=== PATIENT | female | born 1965 | race American Indian/Alaskan Native ===

== ENCOUNTER 2017-10-08 10:07 | Emergency (ER) | payer SELFPAY ==
[2017-10-08 14:31] VITALS: BP 174/87
--- NOTE | 2017-10-08 14:34 | Emergency Department Report ---
ED General Adult HPI - General Chief complaint: Pain General Stated complaint: MUSCLE SPASM Time Seen by Provider: 10/08/17 14:31 Source: patient, family Mode of arrival: Ambulatory Limitations: No Limitations - History of Present Illness Initial comments: This is a 51-year-old patient reports that she is having neuropathic pain everywhere for few weeks. She said it certainly diabetic nerve pain and she doesn't have a primary care doctor. She is currently on medication for diabetes and high blood pressure but says that she does have anything for her neuropathy. Denies any chest pain or shortness of breath. Denies any nausea or vomiting. She is reporting pain to her lower extremity at 8 out of 10 tingling and aching. This is something chronic for her but she says she needs something for pain. Denies any fever or chills. Denies any trauma. No over- the-counter medication taken MD Complaint: generalized pain Onset/Timin -: Gradual, week(s) Location: lower extremity Severity scale (0 -10): 8 Quality: aching, constant, other (tingly) Consistency: constant Improves with: none Worsens with: movement Associated Symptoms: denies: confusion, chest pain, cough, diaphoresis, fever/ chills, headaches, loss of appetite, malaise, nausea/vomiting, rash, seizure, shortness of breath, syncope, weakness Treatments Prior to Arrival: none - Related Data Previous Rx's Medication Instructions Recorded Last Taken Type Cyclobenzaprine [Flexeril] 10 mg PO TID PRN #15 tablet 10/08/17 Unknown Rx Sulfamethoxazole/Trimethoprim 1 each PO BID 7 Days #14 tablet 10/08/17 Unknown Rx [Bactrim DS TAB] traMADol [Ultram 50 MG tab] 50 mg PO Q6HR PRN #15 tablet 10/08/17 Unknown Rx Allergies Allergy/AdvReac Type Severity Reaction Status Date / Time No Known Allergies Allergy Unverified 10/08/17 10:33 ED Review of Systems ROS: Stated complaint: MUSCLE SPASM Other details as noted in HPI Constitutional: denies: chills, fever Eyes: denies: eye pain, eye discharge, vision change Respiratory: denies: cough, shortness of breath, SOB with exertion, SOB at rest , stridor, wheezing Cardiovascular: denies: chest pain, palpitations, edema, syncope Gastrointestinal: denies: abdominal pain, nausea, vomiting, diarrhea Genitourinary: denies: urgency, dysuria, hematuria, discharge Musculoskeletal: arthralgia. denies: back pain, joint swelling, myalgia Skin: denies: rash, lesions Neurological: denies: headache, weakness, numbness, paresthesias, abnormal gait , vertigo ED Past Medical Hx - Past Medical History Previous Medical History?: Yes Hx Hypertension: Yes Hx Diabetes: Yes Additional medical history: Diabetic neuropathy - Surgical History Past Surgical History?: No Hx Coronary Stent: No Hx Open Heart Surgery: No Hx Pacemaker: No Hx Internal Defibrillator: No Hx Cholecystectomy: No Hx Appendectomy: No Hx Breast Surgery: No - Family History Family history: no significant - Social History Smoking Status: Never Smoker Substance Use Type: None - Medications Home Medications: Home Medications Medication Instructions Recorded Confirmed Last Taken Type Cyclobenzaprine [Flexeril] 10 mg PO TID PRN #15 tablet 10/08/17 Unknown Rx Sulfamethoxazole/Trimethoprim 1 each PO BID 7 Days #14 tablet 10/08/17 Unknown Rx [Bactrim DS TAB] traMADol [Ultram 50 MG tab] 50 mg PO Q6HR PRN #15 tablet 10/08/17 Unknown Rx ED Physical Exam - General Limitations: No Limitations General appearance: alert, in no apparent distress - Head Head exam: Present: atraumatic, normocephalic, normal inspection - Eye Eye exam: Present: normal appearance, PERRL, EOMI Pupils: Present: normal accommodation - ENT ENT exam: Present: normal exam, normal orophraynx, mucous membranes moist, TM's normal bilaterally, normal external ear exam - Neck Neck exam: Present: normal inspection, full ROM. Absent: tenderness, lymphadenopathy - Respiratory Respiratory exam: Present: normal lung sounds bilaterally. Absent: respiratory distress, chest wall tenderness - Cardiovascular Cardiovascular Exam: Present: regular rate, normal rhythm, normal heart sounds. Absent: systolic murmur, diastolic murmur - GI/Abdominal GI/Abdominal exam: Present: soft, normal bowel sounds. Absent: distended, tenderness, guarding, rebound, rigid, organomegaly, mass, bruit - Extremities Exam Extremities exam: Present: normal inspection, full ROM, normal capillary refill , other (no clubbing, cyanosis or edema. Positive holosystolic extremities and no neurovascular compromise. Patient with +5/5 strength in all extremities. She has full range of motion to all extremities without any joint crepitus, effusion or deformity.). Absent: tenderness, pedal edema, joint swelling, calf tenderness - Back Exam Back exam: Present: normal inspection, full ROM, other (ambulates without any difficulties). Absent: tenderness, CVA tenderness (R), CVA tenderness (L), muscle spasm, paraspinal tenderness, vertebral tenderness, rash noted - Neurological Exam Neurological exam: Present: alert, oriented X3, normal gait, reflexes normal. Absent: motor sensory deficit - Psychiatric Psychiatric exam: Present: normal affect, normal mood - Skin Skin exam: Present: warm, dry, intact, normal color. Absent: rash ED Course Vital Signs 10/08/17 10/08/17 10:33 14:31 Temperature 98.3 F 97.5 F L Pulse Rate 105 H 80 Respiratory 18 18 Rate Blood Pressure 172/86 Blood Pressure 174/87 [Left] O2 Sat by Pulse 99 97 Oximetry - Reevaluation(s) Reevaluation #1: 10/08/17 16:38 patient given Ultram 50 mg when necessary emergency room for pain to bilateral lower extremity. ED Medical Decision Making - Medical Decision Making This is a 51-year-old female here reports that she does have a primary care physician and she has diabetes which is controlled she says she has a history of neuropathy and she is having her pathic pain in her legs along with spasms which is not new for her. Patient's requesting some medication to help with this. She says she went to [facility] but they did not have any appointment so she came to the emergency room. She is also reporting some pustules to her chest wall area which she says she's had in the past and it usually goes away with antibiotic. She was seen and examined by myself. She was found to have minimal pustular area to anterior chest wall, mild erythema, tender to palpate, neurological, neurovascular and extremity exam normal. +2 pulses to all extremity, 5/5 strength in all extremities. No motor or sensory deficit noted. Patient able to ambulate without any difficulties. I discussed diagnosis and treatment plan with patient and she voiced understanding. She with musculoskeletal pain with paresthesia to bilateral lower extremity suspect from chronic neuropathy .she mild pustular area to anterior chest wall which is stable. Patient given Ultram 50 mg when necessary emergency room for pain which she voiced relief. Patient discharged home in stable condition with prescription for Ultram, Flexeril and Bactrim and I discussed with her that she needs to follow-up with [facility] as she does not have a primary care physician in 2-3 days. I discussed with her to return to the emergency room if her condition worsens otherwise follow up with primary care and she voiced understanding. Critical care attestation.: If time is entered above; I have spent that time in minutes in the direct care of this critically ill patient, excluding procedure time. ED Disposition Clinical Impression: Pain in both lower extremities, Skin pustule, Muscle spasm Disposition: - TO HOME OR SELFCARE Is pt being admited?: No Does the pt Need Aspirin: No Condition: Stable Instructions: Paresthesia (ED), Arthralgia (ED) Additional Instructions: Please follow up with [facility]. Call to schedule an appointment for management of chronic medical problems Take Ultram as prescribed for pain but please do not drive or operate heavy machinery as this medication causes drowsiness. He can have [facility] refer you to have nerve testing done. Prescriptions: Cyclobenzaprine [Flexeril] 10 mg PO TID PRN #15 tablet PRN Reason: Muscle Spasm Sulfamethoxazole/Trimethoprim [Bactrim DS TAB] 1 each PO BID 7 Days #14 tablet traMADol [Ultram 50 MG tab] 50 mg PO Q6HR PRN #15 tablet PRN Reason: Pain Referrals: [facility] [Outside] - 2-3 Days Forms: Work/School Release Form(ED)
[2017-10-08] MEDS ORDERED: ULTRAM PO ONE (16:38)
== END 2017-10-08 16:56 | disposition home or self-care (01) ==
LOC: ED 10:07
DX: M79.662 Pain in left lower leg (principal); M79.661 Pain in right lower leg; M62.838 Other muscle spasm; L08.9 Local infection of the skin and subcutaneous tissue, unspecified; I10 Essential (primary) hypertension; E11.40 Type 2 diabetes mellitus with diabetic neuropathy, unspecified
CPT/HCPCS: 99282

== ENCOUNTER 2017-12-19 09:10 | Emergency (ER) | payer SELFPAY ==
[2017-12-19] MEDS ORDERED: MOTRIN PO ONE (10:04)
--- NOTE | 2017-12-19 10:05 | Emergency Department Report ---
Blank Doc - Documentation Documentation: Patient is a 52-year-old black female who states last night she was in a movie theater and when she got up to use the restroom and return to us E she fell while trying to get down the aisle. Patient states that she fell directly onto the left knee but then also may have hit her right shoulder and ribs. Patient complaining of lower C-spine, right ribs, right shoulder, left hip, and left knee pain. Patient will have x-rays done of those body parts. Patient given 800 mg Motrin for pain relief. The patient will be reassessed.
[2017-12-19] MEDS ORDERED: MOTRIN ONE (10:09)
--- NOTE | 2017-12-19 11:45 | XRay Report ---
LEFT KNEE, 3 views: History: Fall, injury. Bone mineralization is normal. Mild osteoarthritic changes are identified throughout the left knee. No evidence for fracture, bone lesion or joint effusion. IMPRESSION: Mild osteoarthritis. No acute process identified.
--- NOTE | 2017-12-19 11:47 | XRay Report ---
RIGHT RIBS, 3 VIEWS: History: Fall, injury. Routine views of the rib cage demonstrate normal mineralization with no significant contour abnormalities, fractures or destructive lesions. PA view of the chest demonstrates no underlying cardiopulmonary abnormalities, fluid or pneumothorax. IMPRESSION: Unremarkable right rib series.
--- NOTE | 2017-12-19 11:47 | XRay Report ---
RIGHT SHOULDER, 3 VIEWS: HISTORY: Fall, injury. Normal bone mineralization. The a.c. joint is widened up to 1.8 cm. This could be secondary to ligamentous injury or previous trauma. There are moderate osteoarthritic changes of the glenohumeral joint. The soft tissues are unremarkable. IMPRESSION: Osteoarthritis. Widened a.c. joint as described. Ligamentous injury versus chronic injury. Please correlate with the patient.
--- NOTE | 2017-12-19 11:48 | XRay Report ---
LEFT HIP, 2 views: History: Fall, injury. The bony architecture is intact without evidence of fracture or dislocation. No significant soft tissue abnormality is seen. IMPRESSION: Normal left hip.
--- NOTE | 2017-12-19 11:49 | XRay Report ---
CERVICAL SPINE, 3 views: History: Fall, injury. Findings: The vertebral bodies, disk spaces, posterior elements and prevertebral soft tissues are intact. The dens is intact. No acute fracture or malalignment is identified. Moderate degenerative disc disease is identified throughout the cervical spine. The facet joints are unremarkable. Small small right cervical rib at C7 is noted. Impression: Cervical spondylosis. No evidence for acute injury to the cervical spine.
--- NOTE | 2017-12-19 12:32 | Emergency Department Report ---
ED Fall HPI - General Chief Complaint: Fall Stated Complaint: BODY PAIN Time Seen by Provider: 12/19/17 09:58 Source: patient Mode of arrival: Ambulatory - History of Present Illness Initial Comments: This is a 52-year-old female nontoxic, well nourished in appearance, no acute signs of distress presents to the ED with c/o of right shoulder pain, right rib pain, left knee pain, left hip pain and neck pain status post fall that occurred yesterday. Patient stated that she had a ground-level fall at a movie theater. Patient denies any head trauma. Patient denies any loss of consciousness. Patient denies any chest pain, shortness of breath, fever, chills, nausea, vomiting, chest pain, short of breath, headache or stiff neck. Patient denies any drug allergies with past medical history of diabetes, hypertension. MD Complaint: fall -: Last night Fall From: standing Place Fall Occurred: other Loss of Consciousness: none Prolonged Down Time?: no Symptoms Prior to Fall: none Severity: mild Severity scale (0 -10): 8 Quality: aching Context: tripped/slipped Associated Symptoms: neck pain. denies: headache, numbness, weakness, chest paint, shortness of breath, abdominal pain, hematuria, unable to walk, lightheaded, vertigo, confusion - Related Data Previous Rx's Medication Instructions Recorded Last Taken Type Cyclobenzaprine [Flexeril] 10 mg PO TID PRN #15 tablet 10/08/17 Unknown Rx Sulfamethoxazole/Trimethoprim 1 each PO BID 7 Days #14 tablet 10/08/17 Unknown Rx [Bactrim DS TAB] traMADol [Ultram 50 MG tab] 50 mg PO Q6HR PRN #15 tablet 10/08/17 Unknown Rx Cyclobenzaprine HCl [Flexeril 5 MG 5 mg PO QHS PRN #10 tab 12/19/17 Unknown Rx TAB] Gabapentin [Neurontin] 100 mg PO Q12H #12 capsule 12/19/17 Unknown Rx Ibuprofen [Motrin] 600 mg PO Q8H PRN #30 tablet 12/19/17 Unknown Rx metFORMIN [Glucophage] 500 mg PO BID #60 tablet 12/19/17 Unknown Rx Allergies Allergy/AdvReac Type Severity Reaction Status Date / Time No Known Allergies Allergy Unverified 10/08/17 10:33 ED Review of Systems ROS: Stated complaint: BODY PAIN Other details as noted in HPI Constitutional: denies: chills, fever Eyes: denies: eye pain, eye discharge, vision change ENT: denies: ear pain, throat pain Respiratory: denies: cough, shortness of breath, wheezing Cardiovascular: denies: chest pain, palpitations Endocrine: no symptoms reported Gastrointestinal: denies: abdominal pain, nausea, diarrhea Genitourinary: denies: urgency, dysuria, discharge Musculoskeletal: back pain, arthralgia. denies: joint swelling Skin: denies: rash, lesions Neurological: denies: headache, weakness, paresthesias Psychiatric: denies: anxiety, depression Hematological/Lymphatic: denies: easy bleeding, easy bruising ED Past Medical Hx - Past Medical History Previous Medical History?: Yes Hx Hypertension: Yes Hx Diabetes: Yes Additional medical history: Diabetic neuropathy. cardiomyopathy - Surgical History Past Surgical History?: Yes Hx Coronary Stent: No Hx Open Heart Surgery: No Hx Pacemaker: No Hx Internal Defibrillator: No Hx Cholecystectomy: No Hx Appendectomy: No Hx Breast Surgery: No Additional Surgical History: bunionectomy x 2. vaginal prolapse repair. breast biopsy. partial hysterectomy - Social History Smoking Status: Never Smoker Substance Use Type: None - Medications Home Medications: Home Medications Medication Instructions Recorded Confirmed Last Taken Type Cyclobenzaprine [Flexeril] 10 mg PO TID PRN #15 tablet 10/08/17 Unknown Rx Sulfamethoxazole/Trimethoprim 1 each PO BID 7 Days #14 tablet 10/08/17 Unknown Rx [Bactrim DS TAB] traMADol [Ultram 50 MG tab] 50 mg PO Q6HR PRN #15 tablet 10/08/17 Unknown Rx Cyclobenzaprine HCl [Flexeril 5 MG 5 mg PO QHS PRN #10 tab 12/19/17 Unknown Rx TAB] Gabapentin [Neurontin] 100 mg PO Q12H #12 capsule 12/19/17 Unknown Rx Ibuprofen [Motrin] 600 mg PO Q8H PRN #30 tablet 12/19/17 Unknown Rx metFORMIN [Glucophage] 500 mg PO BID #60 tablet 12/19/17 Unknown Rx ED Physical Exam - General Limitations: No Limitations General appearance: alert, in no apparent distress - Head Head exam: Present: atraumatic, normocephalic - Eye Eye exam: Present: normal appearance, PERRL, EOMI Pupils: Present: normal accommodation - ENT ENT exam: Present: normal exam, mucous membranes moist - Neck Neck exam: Present: normal inspection, full ROM. Absent: tenderness, meningismus, lymphadenopathy - Respiratory Respiratory exam: Present: normal lung sounds bilaterally, chest wall tenderness (right lateral rib region). Absent: respiratory distress, wheezes, rales, rhonchi, stridor, accessory muscle use, decreased breath sounds, prolonged expiratory - Cardiovascular Cardiovascular Exam: Present: regular rate, normal rhythm, normal heart sounds. Absent: bradycardia, tachycardia, irregular rhythm, systolic murmur, diastolic murmur, rubs, gallop - GI/Abdominal GI/Abdominal exam: Present: soft, normal bowel sounds. Absent: distended, tenderness, guarding, rebound, rigid, diminished bowel sounds - Extremities Exam Extremities exam: Present: normal inspection, full ROM, tenderness, normal capillary refill. Absent: joint swelling - Expanded Upper Extremity Exam Right General: Present: normal inspection Shoulder Exam: Present: normal inspection, full ROM (with pain), tenderness. Absent: swelling, abrasion, laceration, ecchymosis, deformity, crepidus, dislocation, erythema, tenderness over AC joint Upper Arm exam: Present: normal inspection, full ROM. Absent: tenderness, swelling Elbow exam: Present: normal inspection, full ROM. Absent: tenderness, swelling Forearm Wrist exam: Present: normal inspection, full ROM. Absent: tenderness, swelling Hand Wrist exam: Present: normal inspection, full ROM. Absent: tenderness, swelling Neuro motor exam: Present: wrist extension intact, thumb opposition intact, thumb IP flexion intact, thumb adduction intact, fingers 2-5 abduction intact Neurosensory exam: Present: 2-point discrimination, radial nerve intact, ulnar nerve intact, median nerve intact Vascular: Present: vascular compromise, normal capillary refill, radial pulse, brachial pulse, ulnar pulse - Expanded Lower Extremity Exam Left Hip exam: Present: normal inspection, full ROM, tenderness, external rotation, internal rotation, pelvic stability. Absent: swelling, abrasion, laceration, ecchymosis, deformity, crepidus, dislocation, erythema, shortening Upper Leg exam: Present: normal inspection, full ROM. Absent: tenderness, swelling Knee exam: Present: normal inspection, full ROM, tenderness, full knee extension. Absent: swelling, abrasion, laceration, ecchymosis, deformity, crepidus, dislocation, erythema, effusion, pain w/ pronation/supination, posterior draw sign, pain/laxity with valgus, pain/laxity with varus Lower Leg exam: Present: normal inspection, full ROM. Absent: tenderness, swelling Ankle exam: Present: normal inspection, full ROM. Absent: tenderness, swelling Foot/Toe exam: Present: normal inspection, full ROM. Absent: tenderness, swelling Neuro vascular tendon exam: Present: no vascular compromise. Absent: pulse deficit, abnormal cap refill, motor deficit, sensory deficit, tendon deficit, extremity cold to touch, pallor, abnormal 2-point discrimination, decreased fine /light touch, foot drop, peroneal nerve deficit, significant pain with passive ROM of distal joint Gait: Positive: observed and limited by pain - Back Exam Back exam: Present: normal inspection, full ROM, paraspinal tenderness ( cervical paraspinal). Absent: tenderness, CVA tenderness (R), CVA tenderness (L ), muscle spasm, vertebral tenderness, rash noted - Expanded Back Exam Expanded Back exam: Absent: saddle anesthesia Back exam: Negative Straight Leg Raising: Left, Right - Neurological Exam Neurological exam: Present: alert, oriented X3, CN II-XII intact, normal gait - Expanded Neurological Exam Expanded Patient oriented to: Present: person, place, time Cranial nerves: EOM's Intact: Normal, Facial Sensation: Normal Cerebellar function: Finger to Nose: Normal Upper motor neuron: Pronator Drift: Normal, Sensory Extinction: Normal Sensory exam: Upper Extremity Light Touch: Normal, Upper Extremity Pin Prick: Normal, Upper Extremity Temperature: Normal, UE 2 Point Discrimination: Normal, Lower Extremity Light Touch: Normal, Lower Extremity Pin Prick: Normal, Lower Extremity Temperature: Normal, LE 2 Point Discrimination: Normal Motor strength exam: RUE: 5, LUE: 5, RLE: 5, LLE: 5 Best Eye Response (Edwards): (4) open spontaneously Best Motor Response (Edwards): (6) obeys commands Best Verbal Response (Rikki): (5) oriented Rikki Total: 15 - Psychiatric Psychiatric exam: Present: normal affect, normal mood - Skin Skin exam: Present: warm, dry, intact, normal color. Absent: rash ED Course Vital Signs 12/19/17 09:19 Temperature 97.4 F L Pulse Rate 100 H Respiratory 18 Rate Blood Pressure 144/90 O2 Sat by Pulse 99 Oximetry - Reevaluation(s) Reevaluation #1: 12/19/17 12:32 Patient is speaking in full sentences with no signs of distress noted. ED Medical Decision Making - Medical Decision Making This is a 52-year-old female that presents with fall. Patient is stable and was examined by me. I referred patient to an orthopedic doctor for further evaluation for possible MRI. X-ray has been obtained and dictated by the radiologist. Patient is notified of the x-ray report with noted by the patient. Patient does have normal gait with no tenderness and no joint swelling. No ecchymosis. no joint redness or swelling. Not warm to touch. No signs of cellulites present. Patient received a shoulder sling and a walker in the ED. Patient was instructed to RICE therapy. Patient is discharged with Motrin and Flexeril. At time of discharge, the patient does not seem toxic or ill in appearance. No acute signs of distress noted. Patient agrees to discharge treatment plan of care. No further questions noted by the patient. Patient at discharge request for medication refill of gabapentin and metformin and she is out of it. I will refill for couple of days and instructed the patient to follow up with a primary care doctor. Critical care attestation.: If time is entered above; I have spent that time in minutes in the direct care of this critically ill patient, excluding procedure time. ED Disposition Clinical Impression: Fall Qualifiers: Encounter type: initial encounter Qualified Code(s): W19.XXXA - Unspecified fall, initial encounter Cervical muscle strain Qualifiers: Encounter type: initial encounter Qualified Code(s): S16.1XXA - Strain of muscle, fascia and tendon at neck level, initial encounter Strain of left knee Qualifiers: Encounter type: initial encounter Qualified Code(s): S86.912A - Strain of unspecified muscle(s) and tendon(s) at lower leg level, left leg, initial encounter Strain of left hip Qualifiers: Encounter type: initial encounter Qualified Code(s): S76.012A - Strain of muscle, fascia and tendon of left hip, initial encounter Right shoulder strain Qualifiers: Encounter type: initial encounter Qualified Code(s): S46.911A - Strain of unspecified muscle, fascia and tendon at shoulder and upper arm level, right arm , initial encounter Contusion of rib on right side Qualifiers: Encounter type: initial encounter Qualified Code(s): S20.211A - Contusion of right front wall of thorax, initial encounter Disposition: - TO HOME OR SELFCARE Is pt being admited?: No Does the pt Need Aspirin: No Condition: Stable Instructions: Cyclobenzaprine (By mouth), Muscle Strain (ED) Additional Instructions: Follow-up with your primary care doctor in 3-5 days or if symptoms worsen such as bladder or bowel stability, chest pain, short of breath, numbness or tingling sensation in extremities, headache, dizziness, visual changes, nausea vomiting, or abdominal pain, return back to emergency room as was possible. Take ibuprofen and Flexeril as prescribed. Do not operate heavy machinery while taking Flexeril due to sedation Prescriptions: Cyclobenzaprine HCl [Flexeril 5 MG TAB] 5 mg PO QHS PRN #10 tab PRN Reason: Muscle Spasm Gabapentin [Neurontin] 100 mg PO Q12H #12 capsule Ibuprofen [Motrin] 600 mg PO Q8H PRN #30 tablet PRN Reason: Pain metFORMIN [Glucophage] 500 mg PO BID #60 tablet Referrals: PRIMARY CAREMD [Primary Care Provider] - 3-5 Days GARCIA HOOK MD [Staff Physician] - 3-[address] [facility] [Outside] - 3-5 Days [facility] [Outside] - 3-5 Days Forms: Work/School Release Form(ED)
[2017-12-19 12:54] VITALS: BP 134/80
== END 2017-12-19 13:05 | disposition home or self-care (01) ==
LOC: ED 09:10
DX: S20.211A Contusion of right front wall of thorax, initial encounter (principal); S16.1XXA Strain of muscle, fascia and tendon at neck level, initial encounter; S86.912A Strain of unspecified muscle(s) and tendon(s) at lower leg level, left leg, initial encounter; S76.012A Strain of muscle, fascia and tendon of left hip, initial encounter; S46.911A Strain of unspecified muscle, fascia and tendon at shoulder and upper arm level, right arm, initial encounter; I10 Essential (primary) hypertension; E11.40 Type 2 diabetes mellitus with diabetic neuropathy, unspecified; Z90.710 Acquired absence of both cervix and uterus; W18.30XA Fall on same level, unspecified, initial encounter; Y93.89 Activity, other specified; Y92.254 Theater (live) as the place of occurrence of the external cause; Y99.8 Other external cause status
CPT/HCPCS: 72040; 99284

== ENCOUNTER 2018-03-31 07:50 | Outpatient (CLI) | payer OTHER | END 2018-03-31 07:51 | disposition home or self-care (01) | LOC: PF 07:50 | PROVIDERS: ATTEND Internal Medicine | DX: Z02.71 Encounter for disability determination (principal); I10 Essential (primary) hypertension; Z90.710 Acquired absence of both cervix and uterus | CPT/HCPCS: 94729 ==

== ENCOUNTER 2018-07-25 14:10 | Emergency (ER) | payer OTHER ==
--- NOTE | 2018-07-25 14:32 | Emergency Department Report ---
Blank Doc - Documentation Documentation: 52 y/o female comes in for right foot pain that started yesterday denies any i njuries. PMH: DM, HTN cardic and neuropathy. No PCP.
--- NOTE | 2018-07-25 15:49 | Emergency Department Report ---
HPI - General Chief Complaint: Medical Clearance Time Seen by Provider: 07/25/18 15:17 - HPI HPI: 52-year-old -[place] female presents to the emergency department with complaint of right foot pain upon waking today. She also is asking for a refill of her diabetes and blood pressure medications as she has been out of them for the past 6 weeks. Patient says that she was supposed to be on Lantus and a Epidra but has been unable to afford it secondary to a lack of insurance and was restarted on metformin 500 mg twice daily. She says that the metformin is "not controlling it." She is on amlodipine for her blood pressure. She also has a history of diabetic neuropathy in her hands and fingers, migraine headaches. She does not have a primary care physician. No recent travel or sick contacts at home. ED Past Medical Hx - Past Medical History Hx Hypertension: Yes Hx Diabetes: Yes Hx Headaches / Migraines: Yes Additional medical history: Diabetic neuropathy. cardiomyopathy - Surgical History Hx Coronary Stent: No Hx Open Heart Surgery: No Hx Pacemaker: No Hx Internal Defibrillator: No Hx Cholecystectomy: No Hx Appendectomy: No Hx Breast Surgery: No Additional Surgical History: bunionectomy x 2. vaginal prolapse repair. L breast biopsy. partial hysterectomy - Social History Smoking Status: Never Smoker Substance Use Type: None - Medications Home Medications: Home Medications Medication Instructions Recorded Confirmed Last Taken Type Cyclobenzaprine [Flexeril] 10 mg PO TID PRN #15 tablet 10/08/17 Unknown Rx Sulfamethoxazole/Trimethoprim 1 each PO BID 7 Days #14 tablet 10/08/17 Unknown Rx [Bactrim DS TAB] traMADol [Ultram 50 MG tab] 50 mg PO Q6HR PRN #15 tablet 10/08/17 Unknown Rx Cyclobenzaprine HCl [Flexeril 5 MG 5 mg PO QHS PRN #10 tab 12/19/17 Unknown Rx TAB] Ibuprofen [Motrin] 600 mg PO Q8H PRN #30 tablet 12/19/17 Unknown Rx Gabapentin [Neurontin] 100 mg PO Q12H #12 capsule 07/25/18 Unknown Rx amLODIPine [Norvasc] 5 mg PO DAILY #30 tab 07/25/18 Unknown Rx metFORMIN [Glucophage] 500 mg PO BID #60 tablet 07/25/18 Unknown Rx ED Review of Systems ROS: Stated complaint: RT FOOT PAIN/MEDICATION REFILL Other details as noted in HPI Comment: All other systems reviewed and negative Constitutional: denies: chills, fever Eyes: denies: eye pain, vision change ENT: denies: ear pain, throat pain Respiratory: denies: cough, shortness of breath Cardiovascular: denies: chest pain, palpitations Gastrointestinal: denies: abdominal pain, vomiting Genitourinary: denies: dysuria, discharge Musculoskeletal: arthralgia. denies: back pain, joint swelling Skin: denies: lesions Neurological: denies: headache, weakness, numbness Physical Exam - Physical Exam Vital Signs: Vital Signs 07/25/18 07/25/18 14:27 15:23 Temperature 98.2 F 98.7 F Pulse Rate 114 H 100 H Respiratory 20 13 Rate Blood Pressure 143/77 Blood Pressure 125/82 [Left] O2 Sat by Pulse 100 99 Oximetry Physical Exam: GENERAL: The patient is well-developed well-nourished. HENT: Normocephalic. Atraumatic. Patient has moist mucous membranes. EYES: Extraocular motions are intact. Pupils equal reactive to light bilaterally. NECK: Supple. Trachea is midline. CHEST/LUNGS: Clear to auscultation. There is no respiratory distress noted. HEART/CARDIOVASCULAR: Regular. There is mild tachycardia. There is no murmur. ABDOMEN: Abdomen is soft, nontender. Patient has normal bowel sounds. There is no abdominal distention. SKIN: Skin is warm and dry. NEURO: The patient is awake, alert, and oriented. The patient is cooperative. The patient has no focal neurologic deficits. The patient has normal speech. MUSCULOSKELETAL: There is some tenderness to palpation of the dorsum of the right foot. No obvious deformity. There is no limitation range of motion. There is no evidence of acute injury. Pedal pulses intact. ED Course Vital Signs 07/25/18 07/25/18 14:27 15:23 Temperature 98.2 F 98.7 F Pulse Rate 114 H 100 H Respiratory 20 13 Rate Blood Pressure 143/77 Blood Pressure 125/82 [Left] O2 Sat by Pulse 100 99 Oximetry ED Medical Decision Making - Lab Data Result diagrams: 07/25/18 15:56 07/25/18 15:56 - Radiology Data Radiology results: image reviewed interpreted by me: X-ray of the right foot does not show any fracture, dislocation, or any acute process. - Medical Decision Making Presents to the emergency department with complaint of nontraumatic right foot pain as well as the need for medication refills. Patient has been out of her metformin and her blood sugar was 350. the patient does not appear to be in diab etic ketoacidosis as she has a normal anion gap. She was given IV fluid resuscitation and a dose of IV insulin and her blood sugar came down to about 160. An x-ray was done of the right foot does not show any fracture, dislocation, or any acute process. Labs were unremarkable including no leukocy tosis and normal/low uric acid level. I believe that the pain is most consistent with peripheral/diabetic neuropathy. The patient's blood pressure has been reasonable throughout her ED course. We discussed dietary and lifestyle changes to make to assist with her diabetes. She will be restarted on her metformin, given a prescription for amlodipine, and a small course of gabapentin for her diabetic foot pain. She has been given multiple local primary care clinics for follow-up. She will return to the ER with any worsening of her symptoms or any acute distress. - Differential Diagnosis DKA, HHNK, cellulitis, gout, peripheral neuropathy Critical Care Time: No Critical care attestation.: If time is entered above; I have spent that time in minutes in the direct care of this critically ill patient, excluding procedure time. ED Disposition Clinical Impression: Hyperglycemia Foot pain Qualifiers: Laterality: right Qualified Code(s): M79.671 - Pain in right foot Peripheral neuropathy Qualifiers: Peripheral neuropathy type: polyneuropathy, unspecified Qualified Code(s): G62.9 - Polyneuropathy, unspecified Disposition: DC-01 TO HOME OR SELFCARE Is pt being admited?: No Condition: Stable Instructions: Diabetic Neuropathy (ED), Arthralgia (ED), Diabetic Hyperglycemia (ED) Additional Instructions: Please restart your diabetes and blood pressure medications. I am giving multiple referrals for primary care clinics to establish care. Try and stay away from foods that are high and starches, carbohydrates and sugars. Keep a blood sugar log. Return to the emergency Department with any worsening of your symptoms or any acute distress. Prescriptions: metFORMIN [Glucophage] 500 mg PO BID #60 tablet Gabapentin [Neurontin] 100 mg PO Q12H #12 capsule amLODIPine [Norvasc] 5 mg PO DAILY #30 tab Referrals: [facility] [Outside] - 3-5 Days [facility] [Outside] - 3-5 Days [facility] [Outside] - 3-5 Days [facility] [Outside] - 3-5 Days Time of Disposition: 19:00
[2018-07-25 16:06] LABS: Basophils # (Auto) 0.1 K/mm3 (0.0-0.1); Basophils % (Auto) 0.5 % (0.0-1.8); Eosinophils # (Auto) 0.1 K/mm3 (0.0-0.4); Eosinophils % (Auto) 1.2 % (0.0-4.3); Hematocrit 38.2 % (30.3-42.9); Hemoglobin 12.2 gm/dl (10.1-14.3); Lymphocytes # (Auto) 3.5 K/mm3 (1.2-5.4); Lymphocytes % (Auto) 31.2 % (13.4-35.0); Mean Corpuscular HGB Conc 32 % (30-34); Mean Corpuscular Volume 83 fl (79-97); Monocytes # (Auto) 0.6 K/mm3 (0.0-0.8); Monocytes % (Auto) 5.7 % (0.0-7.3); Platelet Count 282 K/mm3 (140-440); Red Blood Count 4.62 M/mm3 (3.65-5.03); Red Cell Distribution Width 14.8 % (13.2-15.2)
[2018-07-25 16:45] LABS: BUN/Creatinine Ratio 18; Blood Urea Nitrogen 11 mg/dL (7-17); Calcium 8.8 mg/dL (8.4-10.2); Hemolysis Index 13; Uric Acid 4.1 mg/dL (3.5-7.6)
[2018-07-25] MEDS ORDERED: HumuLIN R IV ONE (16:55)
[2018-07-25] MEDS ORDERED: NACL 0.9% 1000 ML 1,000 ML IV ONE (16:55)
[2018-07-25] MEDS ORDERED: MORPHINE IV ONE (17:12)
--- NOTE | 2018-07-25 18:03 | XRay Report ---
PROCEDURE: Right foot. TECHNIQUE: 3 portable views. HISTORY: Right foot pain. COMPARISONS: None. FINDINGS: The bones appear intact without fracture or dislocation. There is osteoarthritis involving the first metatarsal-phalangeal joint. The remaining joint spaces appear satisfactory. The soft tissues are unr emarkable. IMPRESSION: Osteoarthritis involving the great toe. This document is electronically signed by Db Noel MD., Jul 25 2018 06:02:10 PM ET
[2018-07-25 18:15] VITALS: BP 136/74
== END 2018-07-25 19:08 | disposition home or self-care (01) ==
LOC: ED 14:10
DX: E11.65 Type 2 diabetes mellitus with hyperglycemia (principal); E11.42 Type 2 diabetes mellitus with diabetic polyneuropathy; I11.9 Hypertensive heart disease without heart failure; I43 Cardiomyopathy in diseases classified elsewhere; G43.909 Migraine, unspecified, not intractable, without status migrainosus; Z90.710 Acquired absence of both cervix and uterus; Z79.899 Other long term (current) drug therapy
CPT/HCPCS: 36415; 73630; 80048; 82962; 84550; 85025; 96361; 96374; 96375; 99284; J2270; J7030; J1815

== ENCOUNTER 2018-09-26 09:05 | Outpatient (CLI) | payer OTHER ==
--- NOTE | 2018-09-26 10:47 | XRay Report ---
LUMBAR SPINE HISTORY: Disability exam. COMPARISON: None. TECHNIQUE: 3 view(s) of the lumbar spine obtained. FINDINGS: Vertebrae: Grade I L4-5 spondylolisthesis. The rest of the bodies are in normal alignment. Disc Spaces:No significant abnormality. Facet Joints:Multilevel facet joint sclerosis, worse from L3-4 through L5-S1. Additional findings: No pars defect. IMPRESSION: 1. Grade IL4-5 spondylolisthesis with no pars defect. 2. Moderate multilevel facet joint arthropathy. Signer Name: Dixon Madrid MD Signed: 09/26/2018 10:43 AM Workstation Name: [id number]
--- NOTE | 2018-09-26 10:50 | XRay Report ---
BILATERAL SHOULDERS HISTORY: Disability exam. COMPARISON: None. TECHNIQUE: 3 views of both shoulders were obtained. FINDINGS: Bones: No fracture or dislocation. Joint spaces: Bilateral glenohumeral joint osteoarthritis, worse on the right than the left. Signific ant loss of the right glenohumeral joint space with a large inferior humeral osteophyte. Soft tissues: No significant abnormality. Additional findings: Possible loose body in the left axillary recess of the joint capsule. IMPRESSION: Bilateral glenohumeral joint osteoarthritis, worse on the right than the left. Possible loose body in the left space. Signer Name: Dixon Madrid MD Signed: 09/26/2018 10:46 AM Workstation Name: [id number]
== END 2018-09-26 09:06 | disposition home or self-care (01) ==
LOC: XRAY 09:05
PROVIDERS: ATTEND Internal Medicine
DX: Z02.71 Encounter for disability determination (principal); M19.012 Primary osteoarthritis, left shoulder; M19.011 Primary osteoarthritis, right shoulder; M43.17 Spondylolisthesis, lumbosacral region; G95.89 Other specified diseases of spinal cord; I10 Essential (primary) hypertension; Z90.710 Acquired absence of both cervix and uterus
CPT/HCPCS: 72100